=== PATIENT | male | born 1940 | race Caucasian/White ===

== ENCOUNTER 2018-12-07 09:13 | Emergency (ER) | payer MEDICARE, OTHER ==
[2018-12-07] MEDS ORDERED: Sodium Chloride 0.9% 10 ML Syringe FLUSH PRN (09:45)
[2018-12-07] MEDS ORDERED: cefTRIAXone 2 GM Vial IV ONE (09:46)
[2018-12-07] MEDS ORDERED: cefTRIAXone 2 GM in Sodium Chloride 0.9% 100 ML IV ONE (10:00)
--- NOTE | 2018-12-07 11:35 | EDM.PDOC ---
ED HPI GENERAL MEDICAL PROBLEM - General Chief Complaint: Genitourinary Problem Stated Complaint: infection of some kind Time Seen by Provider: 12/07/18 09:38 Source of Information: Reports: Patient, RN Notes Reviewed - History of Present Illness INITIAL COMMENTS - FREE TEXT/NARRATIVE: 78 year old male sent over from [facility] in [facility] because he has a UTI, elevated WBC and "looks sick". He has had dysuria and voiding frequency for about 2 days, hx of previous UTI's and prostate problems, urinary retention but after a procedure about a year ago that has been better. Has had chills, possible low grade fever. UA at clinic was positive for UTI. No abd or back pain at this time. Has been eating and drinking without difficulty. - Related Data Allergies Allergy/AdvReac Type Severity Reaction Status Date / Time No Known Allergies Allergy Verified 12/07/18 09:30 Home Meds: Home Meds Levofloxacin [Levaquin] 500 mg PO DAILY #10 tablet 12/07/18 [Rx] Tamsulosin [Flomax] 0.4 mg PO DAILY 12/07/18 [History] Past Medical History HEENT History: Reports: Impaired Vision Cardiovascular History: Reports: Bypass, High Cholesterol, Other (See Below) Other Cardiovascular History: bypass x4, tachycardia Respiratory History: Reports: COPD Other Respiratory History: Lung Cancer Genitourinary History: Reports: Prostate Disorder Oncologic (Cancer) History: Reports: Lung Other Oncologic History: 2007 - Past Surgical History Respiratory Surgical History: Reports: Lung Resection Other Respiratory Surgeries/Procedures: lower right lobe removed GI Surgical History: Reports: Appendectomy, Colonoscopy Other Male Surgeries/Procedures: Kidney surgery-removed a birthmark Social & Family History - Family History Family Medical History: Noncontributory - Tobacco Use Smoking Status *Q: Former Smoker Used Tobacco, but Quit: Yes Month/Year Tobacco Last Used: 1989 - Caffeine Use Caffeine Use: Reports: Coffee - Recreational Drug Use Recreational Drug Use: No ED ROS GENERAL - Review of Systems Review Of Systems: See Below Constitutional: Reports: Fever (possible low grade), Chills HEENT: Reports: No Symptoms Respiratory: Denies: Shortness of Breath Cardiovascular: Denies: Chest Pain, Lightheadedness GI/Abdominal: Denies: Abdominal Pain, Nausea, Vomiting Musculoskeletal: Reports: Back Pain (mild chronic, no worse than usual) Skin: Reports: No Symptoms ED EXAM, RENAL/ - Physical Exam Exam: See Below General Appearance: Alert, No Apparent Distress Eye Exam: Bilateral Eye: PERRL Throat/Mouth: Normal Inspection Head: Atraumatic. No: Facial Swelling Neck: Supple, Full Range of Motion Respiratory/Chest: No Respiratory Distress, Lungs Clear, Normal Breath Sounds Cardiovascular: Regular Rate, Rhythm. No: Tachycardia GI/Abdominal: Soft, Non-Tender. No: Guarding Back Exam: No: CVA Tenderness (L), CVA Tenderness (R) Extremities: Normal Inspection, Normal Range of Motion. No: Pedal Edema, Leg Pain Neurological: Alert, Oriented, No Motor/Sensory Deficits Skin Exam: Warm, Dry, Normal Color Course - Vital Signs Last Recorded V/S: Last Vital Signs Temp 98.0 F 12/07/18 09:27 Pulse 78 12/07/18 09:27 Resp 12 12/07/18 09:27 BP 111/64 12/07/18 09:27 Pulse Ox 97 12/07/18 09:27 - Orders/Labs/Meds Labs: Laboratory Tests 12/07/18 Range/Units 10:05 Urine Color Dark yellow (Yellow) Urine Appearance Slt cloudy H (Clear) Urine pH 5.5 (5.0-8.0) Ur Specific [employer] > or = 1.030 (1.005-1.030) Urine Protein 2+ H (Negative) Urine Glucose (UA) Negative (Negative) Urine Ketones Trace H (Negative) Urine Occult Blood 2+ H (Negative) Urine Nitrite Negative (Negative) Urine Bilirubin 1+ H (Negative) Urine Urobilinogen 1.0 (0.2-1.0) Ur Leukocyte Esterase 1+ H (Negative) Meds: Medications Discontinued Medications Generic Name Dose Route Start Last Admin Trade Name Freq PRN Reason Stop Dose Admin Ceftriaxone Sodium 2 gm 12/07/18 09:46 12/07/18 10:18 Rocephin IV 12/07/18 09:47 Not Given ONETIME ONE Ceftriaxone Sodium 2 gm/ 100 mls @ 200 mls/hr 12/07/18 10:00 12/07/18 10:19 Sodium Chloride IV 12/07/18 10:29 200 mls/hr ONETIME ONE Administration Sodium Chloride 10 ml 12/07/18 09:45 12/07/18 10:15 Saline Flush FLUSH 10 ml ASDIRECTED PRN Administration Keep Vein Open - Re-Assessments/Exams Free Text/Narrative Re-Assessment/Exam: 12/07/18 11:36 We have given Rocephin 1 g IV. I reviewed lab work sent over from the clinic. Pt is afebrile, not tachycardic, not nauseated or vomiting. Eating and drinking okay. He wants to go home. I think that is reasonable with consideration of the above information. He has been given 1 gram rocephin IV, will start on levaquin 500 mg q day for 10 days. Urine culture was ordered at clinic. He's been advised to return to ED if he does become more ill, especially in terms of running high fever, nausea, vomiting, inability to drink adequate fluid or take the antibiotic or if symptoms otherwise worsening in any way. I have requested that he do see Dr. Reyez his regular provider Thursday or one of the other clinic providers if unable to see Dr. Reyez. 12/08/18 15:11 Departure - Departure Time of Disposition: 11:32 Disposition: Home, Self-Care 01 Condition: Fair Clinical Impression: UTI (urinary tract infection) Qualifiers: Urinary tract infection type: acute cystitis Hematuria presence: with hematuria Qualified Code(s): N30.01 - Acute cystitis with hematuria - Discharge Information Prescriptions: Levofloxacin [Levaquin] 500 mg PO DAILY #10 tablet Instructions: Pyelonephritis, Adult, [id number] Referrals: Samy Reyez MD [Primary Care Provider] - Forms: ED Department Discharge Additional Instructions: Drink plenty of water to maintain hydration, Levaquin antibiotic 500 mg daily for 10 days with your first dose this afternoon. Urine culture was done at the clinic, it takes about 48 hours for that to grow out. See Dr. Reyez or one of the other providers at [facility] Thursday for recheck. Call for appt. If you cannot get in to the clinic for recheck than return to ED so you do get reevaluated before heading into the weekend. Return to ED as needed if you do become more ill with vomiting, high fever, inability to drink adequate fluids or take your antibiotic medication or if symptoms otherwise worsening in any way.
== END 2018-12-07 11:46 | disposition home or self-care (01) ==
LOC: JD.ED 09:13
DX: N30.01 Acute cystitis with hematuria (principal); J44.9 Chronic obstructive pulmonary disease, unspecified; Z79.899 Other long term (current) drug therapy; Z85.118 Personal history of other malignant neoplasm of bronchus and lung; Z90.49 Acquired absence of other specified parts of digestive tract; Z87.891 Personal history of nicotine dependence
CPT/HCPCS: 81003; 96365; 99284; J0696; J7030

== ENCOUNTER 2019-06-13 10:30 | Day surgery (SDC) | payer MEDICARE, OTHER ==
[~2019-06-13 10:30] MED LIST: Lactated Ringers 1,000 ML IV SCH; Lidocaine 1%/Sod Bicarbonate in NS 8.4% 1 ML Syringe IDERM PRN; Sodium Chloride 0.9% 10 ML Syringe FLUSH PRN
--- NOTE | 2019-06-13 12:18 | PCM.PREANE ---
Preanesthetic Assessment - Anesthesia/Transfusion/Family Hx Anesthesia History: Prior Anesthesia Without Reaction Family History of Anesthesia Reaction: No Transfusion History: No Prior Transfusion(s) Intubation History: Unknown - Review of Systems General: No Symptoms Pulmonary: No Symptoms Cardiovascular: No Symptoms Gastrointestinal: No Symptoms Neurological: No Symptoms Other: Reports: None - Physical Assessment NPO Status Date: 06/13/19 NPO Status Time: 02:00 Vital Signs: Last Vital Signs Temp 36.4 C 06/13/19 11:10 Pulse 89 06/13/19 11:10 Resp 16 06/13/19 11:10 BP 113/69 06/13/19 11:10 Pulse Ox 95 06/13/19 11:10 Height: 1.73 m Weight: 80.286 kg ASA Class: 3 Mental Status: Alert & Oriented x3 Airway Class: Mallampati = 2 Dentition: Reports: Normal Dentition Thyro-Mental Finger Breadths: 3 Mouth Opening Finger Breadths: 2 ROM/Head Extension: Full Lungs: Clear to Auscultation, Normal Respiratory Effort Cardiovascular: Regular Rate, Regular Rhythm - Allergies Allergies/Adverse Reactions: Allergies Allergy/AdvReac Type Severity Reaction Status Date / Time No Known Allergies Allergy Verified 12/07/18 09:30 - Anesthesia Plan Beta Norberto: Metoprolol Med Last Dose Date: 06/13/19 Med Last Dose Time: 06:00 - Acknowledgements Anesthesia Type Planned: MAC Pt an Appropriate Candidate for the Planned Anesthesia: Yes Alternatives and Risks of Anesthesia Discussed w Pt/Guardian: Yes Pt/Guardian Understands and Agrees with Anesthesia Plan: Yes PreAnesthesia Questionnaire HEENT History: Reports: Impaired Vision Cardiovascular History: Reports: Bypass, CAD, High Cholesterol, Other (See Below ) Other Cardiovascular History: bypass x4, tachycardia, pt hs had a-fib in the past-states after surgery-resolved Respiratory History: Reports: COPD Other Respiratory History: Lung Cancer Gastrointestinal History: Reports: None Genitourinary History: Reports: BPH, Prostate Disorder Musculoskeletal History: Reports: Back Pain, Chronic Oncologic (Cancer) History: Reports: Lung Other Oncologic History: 2008 - Past Surgical History Respiratory Surgical History: Reports: Lung Resection, Other (See Below) ( bronchopsy) Other Respiratory Surgeries/Procedures: lower right lobe removed GI Surgical History: Reports: Appendectomy, Colonoscopy Other Male Surgeries/Procedures: Kidney surgery-removed a birthmark - SUBSTANCE USE Smoking Status *Q: Former Smoker - HOME MEDS Home Medications: Home Meds Levofloxacin [Levaquin] 500 mg PO DAILY #10 tablet 12/07/18 [Rx] Tamsulosin [Flomax] 0.4 mg PO DAILY 12/07/18 [History] - CURRENT (IN HOUSE) MEDS Current Meds: Current Medications Lactated Ringer's (Ringers, Lactated) 1,000 mls @ 125 mls/hr IV ASDIRECTED BREE Stop: 06/13/19 23:00 Last Admin: 06/13/19 11:15 Dose: 125 mls/hr Lidocaine/Sodium Bicarbonate (Buffered Lidocaine 1% In Ns 8.4%) 0.25 ml IDERM ONETIME PRN PRN Reason: Prior to IV Start Stop: 06/13/19 18:00 Last Admin: 06/13/19 11:15 Dose: 0.25 ml Sodium Chloride (Saline Flush) 10 ml FLUSH ASDIRECTED PRN PRN Reason: Keep Vein Open Stop: 06/13/19 18:00
[2019-06-13] MEDS ORDERED: Lidocaine 1% 4 ML ONE (12:56)
[2019-06-13] MEDS ORDERED: Propofol 200 MG/20 ML SDV ONE ×2 (12:56→14:03)
[2019-06-13] MEDS ORDERED: fentaNYL 100 MCG/2 ML SDV ONE (14:07)
[2019-06-13] MEDS ORDERED: Lactated Ringers 1,000 ML ONE (14:08)
--- NOTE | 2019-06-13 14:45 | PCM48HPAN ---
Post Anesthesia Note - EVALUATION WITHIN 48HRS OF ANESTHETIC Vital Signs in Normal Range: Yes Patient Participated in Evaluation: Yes Respiratory Function Stable: Yes Airway Patent: Yes Cardiovascular Function Stable: Yes Hydration Status Stable: Yes Pain Control Satisfactory: Yes Nausea and Vomiting Control Satisfactory: Yes Mental Status Recovered: Yes Vital Signs: Last Vital Signs Temp 36.4 C 06/13/19 11:10 Pulse 89 06/13/19 11:10 Resp 16 06/13/19 11:10 BP 113/69 06/13/19 11:10 Pulse Ox 95 06/13/19 11:10
--- NOTE | 2019-06-13 15:33 | PROC ---
DATE OF OPERATION: 06/13/2019 SURGEON: Martine Russo MD PREOPERATIVE DIAGNOSIS: Change in bowel habits. POSTOPERATIVE DIAGNOSES: 1. Small cecal polyp. 2. Diverticulosis. 3. Hemorrhoids, internal. OPERATION PERFORMED: Colonoscopy with polypectomy. COMPLICATIONS: None. ANESTHESIA: Monitored anesthesia care. INDICATION AND CONSENT: Mr. Reyes is a 78-year-old male who had a sudden change in bowel movement where he started having some gas bloating, some cramping, as well as constipation with intermittent diarrhea. The patient was evaluated in my clinic and recommended to do a colonoscopy to see if there is anything going on. The patient was told about risks, benefits, and alternatives and all questions were answered. Informed consent was obtained. PROCEDURE IN DETAIL: The patient was taken to the procedure room, placed in supine position. Following an induction of monitored anesthesia care, the patient's position was turned into left lateral decubitus position. We began the procedure by doing a perianal exam. There were 3 skin tags that were unremarkable. There are no fissures. Digital rectal exam was remarkable for internal hemorrhoids that were palpable. The scope was inserted and taken all the way to the cecum. Prep was good. The ileocecal valve as well as appendiceal orifice were photographed. About 2 cm away from appendiceal orifice, there was a diminutive polyp about 2 to 3 mm that was semipedunculated and this was removed with cold forceps for pathologic examination. Then, the scope was withdrawn slowly examining the entirety of the colonic wall. There was no other polyps. There was some scattered diverticulosis in the descending colon and upper rectum. Upon retroflexion in the rectum, there were some grade 2 to 3 internal hemorrhoids that were nonbleeding. Air was suctioned out and the scope was withdrawn at this time. The patient tolerated the procedure well and was taken to the PACU for further recovery. We will call the patient with pathologic results. In the meantime, the patient can continue to use stool softener as needed to keep stools soft and high-fiber to decrease the progression of diverticulosis. MMODAL /[id number] MICAELA
== END 2019-06-13 16:05 | disposition home or self-care (01) ==
LOC: JD.SDS 10:30
PROVIDERS: ATTEND Surgery
DX: K57.30 Diverticulosis of large intestine without perforation or abscess without bleeding (principal); K63.5 Polyp of colon; K64.2 Third degree hemorrhoids; J44.1 Chronic obstructive pulmonary disease with (acute) exacerbation; I25.10 Atherosclerotic heart disease of native coronary artery without angina pectoris; Z87.891 Personal history of nicotine dependence; Z79.899 Other long term (current) drug therapy; Z79.82 Long term (current) use of aspirin; Z79.52 Long term (current) use of systemic steroids
CPT/HCPCS: 45380; J2001; J2704; J3010; J7120; 00811; 88305

== ENCOUNTER 2020-03-15 10:28 | Emergency (ER) | payer MEDICARE, OTHER ==
[2020-03-15] MEDS ORDERED: Sodium Chloride 0.9% 10 ML Syringe FLUSH PRN (11:02)
--- NOTE | 2020-03-15 11:45 | EDM.PDOC ---
ED HPI GENERAL MEDICAL PROBLEM - General Chief Complaint: Respiratory Problem Stated Complaint: COVID + Time Seen by Provider: 03/15/20 10:48 Source of Information: Reports: Patient History Limitations: Reports: No Limitations - History of Present Illness INITIAL COMMENTS - FREE TEXT/NARRATIVE: The patient presents with shortness of breath, generalized weakness, cough, and chest tightness. This has been going on for about a week. His and other family members have tested positive. He did not get tested. Last night his oxygen saturations were getting low. He has oxygen from a prior admission. He started using this last night. His oxygen saturations are in the upper 90s with 2L. He has some nausea but no vomiting or diarrhea. He has no appetite. He quit smoking years ago. 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 Onset: Gradual Duration: Week(s): Location: Reports: Chest Quality: Reports: Other (tightness) Severity: Mild Improves with: Reports: None Worsens with: Reports: None Associated Symptoms: Reports: Chest Pain, Cough, Fever/Chills, Nausea/Vomiting, Shortness of Breath. Denies: Headaches - Related Data Allergies Allergy/AdvReac Type Severity Reaction Status Date / Time No Known Allergies Allergy Verified 03/15/20 10:47 Home Meds: Home Meds Levofloxacin [Levaquin] 500 mg PO DAILY #10 tablet 12/07/18 [Rx] Tamsulosin [Flomax] 0.4 mg PO DAILY 12/07/18 [History] Past Medical History HEENT History: Reports: Impaired Vision Other HEENT History: wears eyeglasses. Cardiovascular History: Reports: Afib, Bypass, CAD, High Cholesterol, Other (See Below) Other Cardiovascular History: bypass x4, tachycardia, pt hs had a-fib in the past-states after surgery-resolved Respiratory History: Reports: COPD Other Respiratory History: Lung Cancer Gastrointestinal History: Reports: None Genitourinary History: Reports: BPH, Prostate Disorder Musculoskeletal History: Reports: Back Pain, Chronic Hematologic History: Reports: Anemia Immunologic History: Reports: Immunosuppression Oncologic (Cancer) History: Reports: Lung Other Oncologic History: 2008 - Infectious Disease History Infectious Disease History: Reports: Chicken Pox, Measles, Mumps, Novel Coronavirus - Past Surgical History Cardiovascular Surgical History: Reports: Coronary Artery Bypass Respiratory Surgical History: Reports: Lung Resection, Other (See Below) Other Respiratory Surgeries/Procedures: lower right lobe removed GI Surgical History: Reports: Appendectomy, Colonoscopy Other Male Surgeries/Procedures: Kidney surgery-removed a birthmark Social & Family History - Family History Family Medical History: Noncontributory - Tobacco Use Smoking Status *Q: Never Smoker Second Hand Smoke Exposure: No - Caffeine Use Caffeine Use: Reports: Coffee - Recreational Drug Use Recreational Drug Use: No ED ROS GENERAL - Review of Systems Review Of Systems: See Below Constitutional: Reports: Fever, Chills, Malaise, Weakness, Fatigue HEENT: Reports: No Symptoms Respiratory: Reports: Shortness of Breath, Cough Cardiovascular: Reports: No Symptoms Endocrine: Reports: No Symptoms GI/Abdominal: Reports: Nausea. Denies: Abdominal Pain, Vomiting : Reports: No Symptoms Musculoskeletal: Reports: No Symptoms ED EXAM, GENERAL - Physical Exam Exam: See Below Exam Limited By: No Limitations General Appearance: Alert, No Apparent Distress Ears: Normal External Exam Nose: Normal Inspection Head: Atraumatic, Normocephalic Neck: Normal Inspection Respiratory/Chest: No Respiratory Distress, Lungs Clear, Normal Breath Sounds Cardiovascular: Regular Rate, Rhythm, No Edema, No Murmur GI/Abdominal: Soft, Non-Tender, No Organomegaly, No Mass Back Exam: Normal Inspection Extremities: Normal Inspection Neurological: Alert, Oriented, No Motor/Sensory Deficits EKG INTERPRETATION EKG Date: 03/15/20 Time: 11:17 Rhythm: NSR Rate (Beats/Min): 83 Shafer: Normal P-Wave: Present QRS: Normal ST-T: Normal QT: Normal Course - Vital Signs Last Recorded V/S: Last Vital Signs Temp 97.5 F 03/15/20 10:30 Pulse 82 03/15/20 12:30 Resp 18 03/15/20 12:30 BP 101/57 L 03/15/20 12:30 Pulse Ox 100 03/15/20 12:30 - Orders/Labs/Meds Orders: Active Orders 24 hr Category Date Time Status Cardiac Monitoring [RC] . DIRECTED Care 03/15/20 11:02 Active Oxygen Therapy [RC] PRN Care 03/15/20 11:02 Active Peripheral IV Care [RC] . DIRECTED Care 03/15/20 11:04 Active Chest 1V Frontal [CR] Stat Exams 03/15/20 11:04 Taken CULTURE BLOOD [BC] Stat Lab 03/15/20 11:29 Received CULTURE BLOOD [BC] Stat Lab 03/15/20 11:37 Received Sodium Chloride 0.9% [Saline Flush] Med 03/15/20 11:02 Active 10 ml FLUSH ASDIRECTED PRN Blood Culture x2 Reflex Set [OM.PC] Stat Oth 03/15/20 11:05 Ordered Peripheral IV Insertion Adult [OM.PC] Stat Oth 03/15/20 11:02 Ordered Medication Orders Sodium Chloride (Saline Flush) 10 ml FLUSH ASDIRECTED PRN PRN Reason: Keep Vein Open Last Admin: 03/15/20 11:32 Dose: 10 ml Documented by: SALVADOR Labs: Laboratory Tests 03/15/20 03/15/20 03/15/20 Range/Units 11:00 11:00 11:00 WBC 3.74 L (4.23-9.07) K/mm3 RBC 5.53 (4.63-6.08) M/mm3 Hgb 15.1 (13.7-17.5) gm/dl Hct 47.2 (40.1-51.0) % MCV 85.4 (79.0-92.2) fl MCH 27.3 (25.7-32.2) pg MCHC 32.0 L (32.2-35.5) g/dl RDW Std Deviation 43.8 (35.1-43.9) fL Plt Count 126 L (163-337) K/mm3 MPV 10.0 (9.4-12.3) fl Neut % (Auto) 66.2 (34.0-67.9) % Lymph % (Auto) 20.9 L (21.8-53.1) % Mathews % (Auto) 11.8 (5.3-12.2) % Eos % (Auto) 0.5 L (0.8-7.0) Baso % (Auto) 0.3 (0.1-1.2) % Neut # (Auto) 2.48 (1.78-5.38) K/mm3 Lymph # (Auto) 0.78 L (1.32-3.57) K/mm3 Mathews # (Auto) 0.44 (0.30-0.82) K/mm3 Eos # (Auto) 0.02 L (0.04-0.54) K/mm3 Baso # (Auto) 0.01 (0.01-0.08) K/mm3 PT 11.2 (9.7-11.7) SECONDS INR 1.05 APTT 33 H (22-31) SECONDS D-Dimer, Quantitative 0.59 H (0.19-0.50) mg/L Puncture Site ABG pH (7.35-7.45) ABG pCO2 (35.0-45.0) mmHg ABG pO2 (80.0-100.0) mmHg ABG HCO3 (22.0-26.0) meq/L ABG O2 Saturation (96.0-97.0) % ABG Base Excess (-2-2.0) Drake Test A-a Gradient mmHg O2 Delivery Device Oxygen Flow Rate FiO2 (21.00-100.00) % Sodium 140 (136-145) mEq/L Potassium 4.3 (3.5-5.1) mEq/L Chloride 103 (98-107) mEq/L Carbon Dioxide 26 (21-32) mEq/L Anion Gap 15.3 H (5-15) BUN 32 H (7-18) mg/dL Creatinine 1.1 (0.7-1.3) mg/dL Est Cr Clr Drug Dosing 54.41 mL/min Estimated GFR (MDRD) > 60 (>60) mL/min BUN/Creatinine Ratio 29.1 H (14-18) Glucose 100 (83-115) mg/dL Lactic Acid (0.4-2.0) mmol/L Calcium 8.6 (8.5-10.1) mg/dL Ferritin (26-388) ng/ml Total Bilirubin 0.4 (0.2-1.0) mg/dL AST 277 H (15-37) U/L ALT 356 H (16-63) U/L Alkaline Phosphatase 74 (46-116) U/L Lactate Dehydrogenase 383 H (85-227) U/L C-Reactive Protein 6.9 H* (<1.0) mg/dL NT-Pro-B Natriuret Pep (0-450) pg/mL Total Protein 7.1 (6.4-8.2) g/dl Albumin 3.2 L (3.4-5.0) g/dl Globulin 3.9 gm/dL Albumin/Globulin Ratio 0.8 L (1-2) SARS-CoV-2 RNA (NEMO) (NEGATIVE) 03/15/20 03/15/20 03/15/20 Range/Units 11:00 11:00 11:00 WBC (4.23-9.07) K/mm3 RBC (4.63-6.08) M/mm3 Hgb (13.7-17.5) gm/dl Hct (40.1-51.0) % MCV (79.0-92.2) fl MCH (25.7-32.2) pg MCHC (32.2-35.5) g/dl RDW Std Deviation (35.1-43.9) fL Plt Count (163-337) K/mm3 MPV (9.4-12.3) fl Neut % (Auto) (34.0-67.9) % Lymph % (Auto) (21.8-53.1) % Mathews % (Auto) (5.3-12.2) % Eos % (Auto) (0.8-7.0) Baso % (Auto) (0.1-1.2) % Neut # (Auto) (1.78-5.38) K/mm3 Lymph # (Auto) (1.32-3.57) K/mm3 Mathews # (Auto) (0.30-0.82) K/mm3 Eos # (Auto) (0.04-0.54) K/mm3 Baso # (Auto) (0.01-0.08) K/mm3 PT (9.7-11.7) SECONDS INR APTT (22-31) SECONDS D-Dimer, Quantitative (0.19-0.50) mg/L Puncture Site ABG pH (7.35-7.45) ABG pCO2 (35.0-45.0) mmHg ABG pO2 (80.0-100.0) mmHg ABG HCO3 (22.0-26.0) meq/L ABG O2 Saturation (96.0-97.0) % ABG Base Excess (-2-2.0) Drake Test A-a Gradient mmHg O2 Delivery Device Oxygen Flow Rate FiO2 (21.00-100.00) % Sodium (136-145) mEq/L Potassium (3.5-5.1) mEq/L Chloride (98-107) mEq/L Carbon Dioxide (21-32) mEq/L Anion Gap (5-15) BUN (7-18) mg/dL Creatinine (0.7-1.3) mg/dL Est Cr Clr Drug Dosing mL/min Estimated GFR (MDRD) (>60) mL/min BUN/Creatinine Ratio (14-18) Glucose (83-115) mg/dL Lactic Acid 0.8 (0.4-2.0) mmol/L Calcium (8.5-10.1) mg/dL Ferritin 388 (26-388) ng/ml Total Bilirubin (0.2-1.0) mg/dL AST (15-37) U/L ALT (16-63) U/L Alkaline Phosphatase (46-116) U/L Lactate Dehydrogenase (85-227) U/L C-Reactive Protein (<1.0) mg/dL NT-Pro-B Natriuret Pep 225 (0-450) pg/mL Total Protein (6.4-8.2) g/dl Albumin (3.4-5.0) g/dl Globulin gm/dL Albumin/Globulin Ratio (1-2) SARS-CoV-2 RNA (NEMO) (NEGATIVE) 03/15/20 03/15/20 Range/Units 11:42 11:46 WBC (4.23-9.07) K/mm3 RBC (4.63-6.08) M/mm3 Hgb (13.7-17.5) gm/dl Hct (40.1-51.0) % MCV (79.0-92.2) fl MCH (25.7-32.2) pg MCHC (32.2-35.5) g/dl RDW Std Deviation (35.1-43.9) fL Plt Count (163-337) K/mm3 MPV (9.4-12.3) fl Neut % (Auto) (34.0-67.9) % Lymph % (Auto) (21.8-53.1) % Mathews % (Auto) (5.3-12.2) % Eos % (Auto) (0.8-7.0) Baso % (Auto) (0.1-1.2) % Neut # (Auto) (1.78-5.38) K/mm3 Lymph # (Auto) (1.32-3.57) K/mm3 Mathews # (Auto) (0.30-0.82) K/mm3 Eos # (Auto) (0.04-0.54) K/mm3 Baso # (Auto) (0.01-0.08) K/mm3 PT (9.7-11.7) SECONDS INR APTT (22-31) SECONDS D-Dimer, Quantitative (0.19-0.50) mg/L Puncture Site Rt radial ABG pH 7.45 (7.35-7.45) ABG pCO2 32.4 L (35.0-45.0) mmHg ABG pO2 103.0 H (80.0-100.0) mmHg ABG HCO3 22.3 (22.0-26.0) meq/L ABG O2 Saturation 97.6 H (96.0-97.0) % ABG Base Excess -0.4 (-2-2.0) Drake Test Positive A-a Gradient 56 mmHg O2 Delivery Device Nasal cannula Oxygen Flow Rate 2.0 FiO2 28.00 (21.00-100.00) % Sodium (136-145) mEq/L Potassium (3.5-5.1) mEq/L Chloride (98-107) mEq/L Carbon Dioxide (21-32) mEq/L Anion Gap (5-15) BUN (7-18) mg/dL Creatinine (0.7-1.3) mg/dL Est Cr Clr Drug Dosing mL/min Estimated GFR (MDRD) (>60) mL/min BUN/Creatinine Ratio (14-18) Glucose (83-115) mg/dL Lactic Acid (0.4-2.0) mmol/L Calcium (8.5-10.1) mg/dL Ferritin (26-388) ng/ml Total Bilirubin (0.2-1.0) mg/dL AST (15-37) U/L ALT (16-63) U/L Alkaline Phosphatase (46-116) U/L Lactate Dehydrogenase (85-227) U/L C-Reactive Protein (<1.0) mg/dL NT-Pro-B Natriuret Pep (0-450) pg/mL Total Protein (6.4-8.2) g/dl Albumin (3.4-5.0) g/dl Globulin gm/dL Albumin/Globulin Ratio (1-2) SARS-CoV-2 RNA (NEMO) Positive H (NEGATIVE) Meds: Medications Generic Name Dose Route Start Last Admin Trade Name Mj PRN Reason Stop Dose Admin Sodium Chloride 10 ml 03/15/20 11:02 03/15/20 11:32 Saline Flush FLUSH 10 ml ASDIRECTED PRN Administration Keep Vein Open - Re-Assessments/Exams Free Text/Narrative Re-Assessment/Exam: 03/15/20 11:50 I ordered oxygen, IV saline lock, labs, CXR, blood cultures, and lactic acid. 03/15/20 14:15 His CXR shows possible very small left pleural effusion but no acute pulmonary edema. Chronic postsurgical change and probable other post treatment changes in right hemithorax where there is volume loss and extensive pleuroparenchymal scarring/consolidation similar to that seen with CT August 2018. His WBC was low at 3.74. His D-dimer was elevated at 0.59 consistent with COVID 19. His pH is normal. His pO2 is elevated at 103. His AST is elevated at 277. His ALT is elevated at 356. His LDH is elevated at 383. His CRP is elevated at 6.9. He is doing good. He does have some oxygen at home to use as needed. Departure - Departure Time of Disposition: 14:00 Disposition: Home, Self-Care 01 Condition: Fair Clinical Impression: COVID-19 - Discharge Information *PRESCRIPTION DRUG MONITORING PROGRAM REVIEWED*: Not Applicable *COPY OF PRESCRIPTION DRUG MONITORING REPORT IN PATIENT EMETERIO: Not Applicable Referrals: Samy Reyez MD [Primary Care Provider] - 1 Week Forms: ED Department Discharge Additional Instructions: Take your medication as prescribed. Use the oxygen as needed. Take tylenol or motrin as needed for fever or pain. Please return if you are worse. Sepsis Event Note (ED) - Evaluation Sepsis Screening Result: No Definite Risk - Focused Exam Vital Signs: Vital Signs Temp Pulse Resp BP Pulse Ox 03/15/20 12:30 82 18 101/57 L 100 03/15/20 11:45 84 16 106/87 98 03/15/20 10:30 97.5 F 84 20 117/102 H 100 - My Orders Last 24 Hours: My Active Orders 03/15/20 11:02 Cardiac Monitoring [RC] . DIRECTED Oxygen Therapy [RC] PRN Sodium Chloride 0.9% [Saline Flush] 10 ml FLUSH ASDIRECTED PRN Peripheral IV Insertion Adult [OM.PC] Stat 03/15/20 11:04 Peripheral IV Care [RC] . DIRECTED Chest 1V Frontal [CR] Stat 03/15/20 11:05 Blood Culture x2 Reflex Set [OM.PC] Stat 03/15/20 11:29 CULTURE BLOOD [BC] Stat 03/15/20 11:37 CULTURE BLOOD [BC] Stat - Assessment/Plan Last 24 Hours: My Active Orders 03/15/20 11:02 Cardiac Monitoring [RC] . DIRECTED Oxygen Therapy [RC] PRN Sodium Chloride 0.9% [Saline Flush] 10 ml FLUSH ASDIRECTED PRN Peripheral IV Insertion Adult [OM.PC] Stat 03/15/20 11:04 Peripheral IV Care [RC] . DIRECTED Chest 1V Frontal [CR] Stat 03/15/20 11:05 Blood Culture x2 Reflex Set [OM.PC] Stat 03/15/20 11:29 CULTURE BLOOD [BC] Stat 03/15/20 11:37 CULTURE BLOOD [BC] Stat
--- NOTE | 2020-04-16 14:29 | CR ---
"PROCEDURE INFORMATION: Exam: XR Chest, 1 View Exam date and time: 03/15/2020 10:51 AM Age: 79 years old Clinical indication: Chest pain TECHNIQUE: Imaging protocol: XR of the chest Views: 1 view. COMPARISON: CT Ang Chest 08/30/2018 11:35 AM FINDINGS: Lungs: Dense consolidation of medial segment right middle lobe and with opacification in right lower chest, with evidence of possible right lower lobectomy versus subtotal resection and dense consolidation. The medial lobe lateral segment is hyperexpanded. There is right apicolateral pleural thickening with pleuroparenchymal scarring and volume loss. Pleural space: There is a very small degree of left costophrenic angle blunting. Chronic right upper pleural thickening and underlying pleuroparenchymal scarring. Heart/Mediastinum: Normal heart dimensions. Vasculature: Normal pulmonary vessel caliber. Normal aorta. Bones/joints: Median sternotomy wires and surgical clips compatible with prior CABG. IMPRESSION: 1. Possible very small left pleural effusion but no acute pulmonary edema. 2. Chronic postsurgical change and probable other post treatment changes in right hemithorax where there is volume loss and extensive pleuroparenchymal scarring/consolidation similar to that seen with CT August 2018. Thank you for allowing us to participate in the care of your patient. Dictated and Authenticated by: Emil Bya MD WATKINS, DAVID | Final Radiology Report CONFIDENTIALITY STATEMENT This report is intended only for use by the referring physician, and only in accordance with law. If you received this in error, call [phone]. Page 2 of 2 04/16/2020 3:07 PM Central Time ([place] & [place]) MICAELA"
== END 2020-03-15 14:55 | disposition home or self-care (01) ==
LOC: JD.ED 10:28 → SUPCPDRO 10:28 → JD.ED 14:55
DX: U07.1 COVID-19 (principal); I48.91 Unspecified atrial fibrillation; I25.10 Atherosclerotic heart disease of native coronary artery without angina pectoris; Z95.1 Presence of aortocoronary bypass graft; J44.9 Chronic obstructive pulmonary disease, unspecified; N40.0 Benign prostatic hyperplasia without lower urinary tract symptoms
CPT/HCPCS: 36415; 36600; 71045; 80053; 82728; 82803; 83605; 83615; 83880; 85025; 85379; 85610; 85730; 86140; 87040; 99285; U0002; 93010; 99283

== ENCOUNTER 2022-05-16 11:09 | Emergency (ER) | payer MEDICARE, OTHER ==
[2022-05-16] MEDS ORDERED: Sodium Chloride 0.9% 10 ML Syringe FLUSH PRN (12:59)
[2022-05-16] MEDS ORDERED: Metoclopramide 10 MG/2 ML SDV IVPUSH ONE (13:45)
[2022-05-16] MEDS ORDERED: HYDROmorphone 0.5 MG/0.5 ML Syringe IVPUSH ONE (13:46)
[2022-05-16] MEDS ORDERED: Lidocaine 1% PF 2 ML SDV INJECT ONE (13:51)
[2022-05-16 14:27] LABS: CORONAVIRUS COVID-19 NAA NEGATIVE (NEGATIVE)
[2022-05-16 14:35] LABS: ESTIMATED GFR 87 mL/min (>60)
[2022-05-16] MEDS ORDERED: Diphtheria,Pertussis(Acell),Tetanus Vaccine 0.5 ML Syringe IM ONE (14:52)
[2022-05-16] MEDS ORDERED: Iopamidol 612 MG/ML 100 ML Bottle IVPUSH ONE (15:16)
[2022-05-16] MEDS ORDERED: Sodium Chloride 0.9% 10 ML Syringe FLUSH ONE (15:16)
[2022-05-16] MEDS ORDERED: HYDROmorphone 1 MG/ML Syringe IVPUSH ONE (16:43)
== END 2022-05-16 17:51 ==
LOC: JD.ED 11:09
DX: S02.622A Fracture of subcondylar process of left mandible, initial encounter for closed fracture (principal); S01.511A Laceration without foreign body of lip, initial encounter; I48.91 Unspecified atrial fibrillation; I25.810 Atherosclerosis of coronary artery bypass graft(s) without angina pectoris; E78.00 Pure hypercholesterolemia, unspecified; I10 Essential (primary) hypertension; Z95.1 Presence of aortocoronary bypass graft; Z79.899 Other long term (current) drug therapy; Z87.891 Personal history of nicotine dependence; Z86.16 Personal history of COVID-19; Z20.822 Contact with and (suspected) exposure to COVID-19; Z23 Encounter for immunization; W22.09XA Striking against other stationary object, initial encounter
CPT/HCPCS: 0240U; 12011; 36415; 70486; 71045; 71260; 80053; 83735; 83880; 85025; 85610; 85730; 86140; 90471; 90715; 93005; 96374; 96375; 96376; 99285; J1170; J2765; J3490; Q9967